=== PATIENT | female | born 1990 | race Caucasian/White ===

== ENCOUNTER 2017-04-23 10:08 | Emergency (ER) | payer SELFPAY ==
[~2017-04-23] VITALS: Ht 154.9 cm; Wt 56.4 kg
[2017-04-23 10:16] VITALS: BP 121/71
[2017-04-23 10:51] LABS: UA SPECIFIC GRAVITY >=1.030 (1.005-1.035); microscopic required? YES; urine erythrocyte NEGATIVE (NEGATIVE)
== END 2017-04-23 11:07 | disposition home or self-care (01) ==
LOC: ED 10:08
PROVIDERS: Emergency Medicine
DX: N30.00 Acute cystitis without hematuria (principal)